=== PATIENT | female | born 1950 | race Caucasian/White ===

== ENCOUNTER 2019-04-19 13:01 | Inpatient (IN) | payer OTHER ==
[~2019-04-19] VITALS: Ht 152.4 cm; Wt 86.6 kg
--- NOTE | ~2019-04-19 | CON ---
[address] [address] CONSULTATION Name: MELVIN CAZARES Room: [address] IN [facility]#: [id number] Admission: 04/19/19 Attend Phys: Cuauhtemoc Singh MD Discharge: Date of : 54 Report #: [id number] THIS REPORT FOR: //name// CC: Cuauhtemoc Coopere Giovannashannonrocky DATE OF SERVICE: 04/20/2019 HISTORY OF PRESENT ILLNESS: This is a 68-year-old female with history of diverticulitis in the past who also sees my partner, Dr. Catalan for her diagnosis of ulcerative colitis. She reports that she takes sulfasalazine for this and has been stable. Her last colonoscopy was [address] Catalan. The patient reports that she went to bed couple of nights ago and when she woke up, she had severe abdominal pain which was radiating. She knew that this is similar to what she had experienced when she had diverticulitis before. This prompted her to come to hospital. Since hospitalization, she had imaging studies and diagnosis was confirmed. She has been on antibiotics since admission and on clear liquids. She reports that she was feeling better this morning until she drank something which made her have abdominal cramping. She denies any hematochezia or melena. PAST MEDICAL HISTORY: Significant for history of recurrent diverticulitis, ulcerative colitis, ileus, gallbladder disease, status post cholecystectomy, tonsillectomy, depression, anxiety, and diabetes. ALLERGIES: Significant for mirtazapine. MEDICATIONS: Please refer to MAR. SOCIAL HISTORY: The patient is and lives at home. Denies tobacco or alcohol use. FAMILY HISTORY: Negative for GI malignancy. PHYSICAL EXAMINATION: VITAL SIGNS: Reveals blood pressure of 122/63, respirations 15, pulse 70, temperature 98.1. LUNGS: Clear. CARDIOVASCULAR: Regular. ABDOMEN: Soft, mildly tender to palpation in the lower quadrant. Bowel sounds are positive. NEUROLOGIC: The patient is alert and oriented x 3. [place] [address] CONSULTATION Name: MELVIN CAZARES Room: [address]#: [id number] Admission: 04/19/19 Attend Phys: Cuauhtemoc Singh MD Discharge: Date of : 54 Report #: [id number] LABORATORY DATA: Reveal sodium of 140, potassium 4.2, BUN is 10, creatinine 0.9, glucose 145. Liver function tests all within normal limits. Total bilirubin is 1.1, albumin is 3.3. WBC is 10, hemoglobin 12.6 with platelets of 304. IMAGING: CT of abdomen and pelvis was obtained on admission. This was significant for circumferential wall thickening within the sigmoid colon, which has been present dating back to 2008. She also has chronic diverticulitis and scarring from the same. There is gaseous distention of the proximal area of the sigmoid colon, which may hint to colonic ileus. Finally, the patient also has evidence of fatty liver. ASSESSMENT AND PLAN: The patient with history of chronic diverticulitis and ulcerative colitis, who presents with abdominal pain. She is on antibiotic therapy and clear liquids. I will initiate Bentyl 10 mg q.8 hours for her abdominal cramping. She will need repeat of her colonoscopy in 4-6 weeks, which we will schedule accordingly. By: [id number] Alejo MD /nt
[2019-04-19 13:12] VITALS: BP 127/85
[2019-04-19] MEDS ORDERED: CLONAZEPAM 0.50.5 M1 PO (13:20)
[2019-04-19] MEDS ORDERED: AMARYL4 MG PO (13:20)
[2019-04-19] MEDS ORDERED: LEXAPRO20 MG PO (13:21)
[2019-04-19 13:25] LABS: ABSOLUTE BASOPHILS 0.1 thou/uL (0.0-0.2); ABSOLUTE EOSINOPHILS 0.1 thou/uL (0.0-0.7); ABSOLUTE LYMPHOCYTES 1.5 thou/uL (0.8-5.3); ABSOLUTE MONOCYTES 0.8 thou/uL (0.0-1.2); ABSOLUTE NEUTROPHILS 10.5 thou/uL (1.6-8.1); BASOPHILS 0.6 %; HEMATOCRIT 40.8 % (37.0-47.0); HEMOGLOBIN 13.3 gm/dL (12.0-15.0); LYMPHOCYTES 11.5 %; MCH 26.7 pg (26.0-34.0); MCHC 32.5 g/dL (28.0-37.0); MONOCYTES 5.9 %; MPV 7.5 fl. (7.2-11.1); NUCLEATED RBCS 0 /100WBC; PLATELET COUNT* 347 thou/uL (150-400); RBC 4.98 mil/uL (4.20-5.00); RDW-CV 14.6 % (10.5-14.5); WBC 12.9 thou/uL (4.0-11.0)
[2019-04-19 13:34] LABS: ANION GAP 9 mmol/L (7-16); BUN 10 mg/dL (7-18); CHLORIDE 102 mmol/L (98-107); CO2 27 mmol/L (21-32); GLUCOSE 126 mg/dL (70-99); POTASSIUM 3.8 mmol/L (3.5-5.1); SODIUM 138 mmol/L (136-145)
[2019-04-19 13:43] LABS: ALBUMIN 3.3 g/dL (3.4-5.0); ALKALINE PHOSPHATASE 98 U/L (46-116); LIPASE 56 U/L (73-393); SGOT 23 U/L (15-37); SGPT 33 U/L (30-65); TOTAL BILIRUBIN 1.1 mg/dL (<0.1-1.0); TOTAL PROTEIN 7.6 g/dL (6.4-8.2); TROPONIN-I LEVEL <0.06 ng/mL (<0.06)
[2019-04-19 15:02] LABS: URINE BILIRUBIN NEGATIVE (Negative); URINE BLOOD NEGATIVE (Negative); URINE CLARITY CLEAR; URINE COLOR YELLOW; URINE GLUCOSE-RANDOM NEGATIVE (Negative); URINE KETONES TRACE (Negative); URINE LEUKOCYTES-REFLEX NEGATIVE (Negative); URINE NITRITE-REFLEX NEGATIVE (Negative); URINE PROTEIN NEGATIVE (Negative); URINE SPECIFIC GRAVITY <= 1.005 (1.005-1.030); URINE UROBILINOGEN 0.2 E.U./dl (0.2-1.0)
[2019-04-19 15:13] VITALS: BP 132/67
[2019-04-19 15:25] VITALS: BP 135/66
[2019-04-19 17:18] VITALS: BP 128/64
[2019-04-19 20:50] VITALS: BP 137/64
[2019-04-20 05:09] LABS: ABSOLUTE EOSINOPHILS 0.1 thou/uL (0.0-0.7); ABSOLUTE LYMPHOCYTES 1.6 thou/uL (0.8-5.3); ABSOLUTE MONOCYTES 0.8 thou/uL (0.0-1.2); ABSOLUTE NEUTROPHILS 7.4 thou/uL (1.6-8.1); BASOPHILS 0.3 %; EOSINOPHILS 1.5 %; HEMATOCRIT 38.6 % (37.0-47.0); HEMOGLOBIN 12.6 gm/dL (12.0-15.0); MCH 26.9 pg (26.0-34.0); MCHC 32.6 g/dL (28.0-37.0); MCV 82.7 fL (80.0-100.0); MPV 7.3 fl. (7.2-11.1); NUCLEATED RBCS 0 /100WBC; PLATELET COUNT* 304 thou/uL (150-400); POLYS 74.2 %; RBC 4.66 mil/uL (4.20-5.00)
[2019-04-20 05:16] LABS: CALCIUM 8.4 mg/dL (8.5-10.1); CREATININE 0.9 mg/dL (0.6-1.3); POTASSIUM 4.2 mmol/L (3.5-5.1)
[2019-04-20 08:00] VITALS: BP 122/63
--- NOTE | 2019-04-20 11:59 | EKG ---
[place] [address] ELECTROCARDIOGRAM REPORT Name: MELVIN CAZARES Room: [address] IN .R.#: [id number] Admission: 04/19/19 Attend Phys: Cuauhtemoc Singh MD Discharge: Date of : 54 Report #: [id number] THIS REPORT FOR: //name// 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1950 Requested By: Israel Patel Order Number: [id number] : Dawood Stevenson Measurements Intervals [place] Rate: 85 P: 63 ME: 148 QRS: -5 QRSD: 81 T: 28 QT: 397 QTc: 472 Interpretive Statements Sinus rhythm Left ventricular hypertrophy Borderline T abnormalities, anterior leads No previous ECG available for comparison Electronically Signed On 04-20-2019 11:59:25 CDT by Dawood Stevenson [email or web address] <ELECTRONICALLY SIGNED> By: Dawood Stevenson MD, [facility] 04/20/19 1159 1319 1319 Dawood Stevenson MD, [facility] /EPI
[2019-04-20 16:00] VITALS: BP 111/41
[2019-04-20 19:30] VITALS: BP 102/51
[2019-04-21 05:16] LABS: ABSOLUTE EOSINOPHILS 0.4 thou/uL (0.0-0.7); ABSOLUTE LYMPHOCYTES 1.7 thou/uL (0.8-5.3); ABSOLUTE MONOCYTES 0.6 thou/uL (0.0-1.2); ABSOLUTE NEUTROPHILS 4.3 thou/uL (1.6-8.1); BASOPHILS 0.5 %; EOSINOPHILS 5.7 %; HEMATOCRIT 34.4 % (37.0-47.0); HEMOGLOBIN 11.3 gm/dL (12.0-15.0); LYMPHOCYTES 24.1 %; MCH 27.3 pg (26.0-34.0); MCHC 32.9 g/dL (28.0-37.0); MCV 82.8 fL (80.0-100.0); MONOCYTES 9.1 %; MPV 7.3 fl. (7.2-11.1); NUCLEATED RBCS 0 /100WBC; PLATELET COUNT* 285 thou/uL (150-400); POLYS 60.6 %; RBC 4.15 mil/uL (4.20-5.00); RDW-CV 14.7 % (10.5-14.5); WBC 7.1 thou/uL (4.0-11.0)
[2019-04-21 05:28] LABS: CALCIUM 7.9 mg/dL (8.5-10.1); CREATININE 0.9 mg/dL (0.6-1.3); POTASSIUM 3.2 mmol/L (3.5-5.1)
[2019-04-21 07:52] VITALS: BP 127/57
[2019-04-21 16:00] VITALS: BP 144/71
[2019-04-21 21:30] VITALS: BP 123/51
[2019-04-22 07:30] VITALS: BP 176/68
[2019-04-22] MEDS ORDERED: CIPRO500 MG PO (10:04)
[2019-04-22] MEDS ORDERED: FLAGYL500 M1 PO (10:04)
[2019-04-22] MEDS ORDERED: BENTYL 10 MG CA10 M1 PO (10:06)
[2019-04-22 10:10] VITALS: BP 123/51
== END 2019-04-22 11:15 | disposition home or self-care (01) | DRG 872 ==
LOC: M.ERS 13:01 → M.TBA-ER 14:29 → M.ORTHSURG 14:29
PROVIDERS: Emergency Medicine; ADMIT Internal Medicine
DX: A41.9 Sepsis, unspecified organism (principal); K57.32 Diverticulitis of large intestine without perforation or abscess without bleeding; E86.0 Dehydration; F41.9 Anxiety disorder, unspecified; F32.9 Major depressive disorder, single episode, unspecified; Z88.8 Allergy status to other drugs, medicaments and biological substances; Z90.49 Acquired absence of other specified parts of digestive tract

== ENCOUNTER 2019-12-14 05:29 | Inpatient (IN) | payer OTHER ==
[~2019-12-14] VITALS: Ht 152.4 cm; Wt 80.5 kg
--- NOTE | ~2019-12-14 | CON ---
[address] [address] CONSULTATION Name: MELVIN CAZARES Room: [address] IN [facility]#: [id number] Admission: 12/14/19 Attend Phys: Lester Esteban Discharge: Date of : 54 Report #: [id number] THIS REPORT FOR: //name// cc: Kiran Mejia Steve T. DO ~ THIS REPORT FOR: //name// CC: Kiran Johnson DATE OF SERVICE: 12/14/2019 HISTORY OF PRESENT ILLNESS: This is a 69-year-old female patient who was evaluated by me for any neurological etiology for the patient's dizziness. The patient indicated that this dizziness started about 2-3 days ago. She did not have any episode of dizziness before. She denies any history of strokes in the past. She does not know any aggravating or relieving factor for this dizziness. REVIEW OF SYSTEMS: A 14-point review of system was carried out in this patient. She denies any history of stroke. She denies any history of visual problems, chest pain or respiratory difficulty, although her CT chest has been abnormal. She does have some GI symptoms in the past and she was admitted with diverticulosis at one time. She does not have any clearcut UTI symptom. No new musculoskeletal, constitutional, dermatological, hematological, psychiatric, throat or allergic symptom associated with present symptomatology. PAST MEDICAL HISTORY: Negative for such dizziness. FAMILY HISTORY: Unremarkable. SOCIAL HISTORY: She denies the use of any alcohol. PHYSICAL EXAMINATION: Indicate this patient is alert, responsive, able to follow simple and complex command. Her speech looks intact. Cranial nerve examination 2-12 does not appear to be showing any definite abnormality. She moves all 4 extremities. She said she was wobbly yesterday, I did not make her walk. Her position sense is intact. She has no meningeal sign. I could not look at the fundus. There is no respiratory difficulty, although CT chest is somewhat abnormal. Cardiac examinations appear unremarkable. Pulses are somewhat difficult to feel in the lower extremities. Blood pressure is 146/62, respiration is 18, pulse is 84, temperature is 98.5. LABORATORY DATA: White count is 8.9. Sodium is normal. IMPRESSION: This patient complained of dizziness. She did have some ataxia. Because of that, we will exclude any possibility of any FIXED [employer]ING [employer]IEF [place] [address] CONSULTATION Name: MELVIN CAZARESETTE Room: [address]#: [id number] Admission: 12/14/19 Attend Phys: Lester Esteban Discharge: Date of : 54 Report #: [id number] MRI of the brain. More likely etiology is systemic including ENT and I will suggest continue the management. We will review the MRI when it is available and see if anything else further needs to be done neurologically. Thank you very much for this referral. By: [id number] Otoole MD /nt
[~2019-12-14 05:29] MED LIST: AMARYL4 MG PO; BENTYL 10 MG CA10 M1 PO; CIPRO500 MG PO; CLONAZEPAM 0.50.5 M1 PO; FLAGYL500 M1 PO; LEXAPRO20 MG PO
[2019-12-14 05:38] VITALS: BP 124/69
[2019-12-14] MEDS ORDERED: TRESIBA100 UNIT/1 SUBQ (05:46)
[2019-12-14 06:10] LABS: ABSOLUTE EOSINOPHILS 0.6 thou/uL (0.0-0.7); ABSOLUTE LYMPHOCYTES 1.4 thou/uL (0.8-5.3); ABSOLUTE MONOCYTES 1.4 thou/uL (0.0-1.2); ABSOLUTE NEUTROPHILS 5.4 thou/uL (1.6-8.1); BASOPHILS 0.4 %; EOSINOPHILS 6.6 %; HEMATOCRIT 34.4 % (37.0-47.0); LYMPHOCYTES 16.2 %; MCH 25.1 pg (26.0-34.0); MCV 78.6 fL (80.0-100.0); MONOCYTES 15.8 %; MPV 7.8 fl. (7.2-11.1); NUCLEATED RBCS 0 /100WBC; PLATELET COUNT* 426 thou/uL (150-400); RBC 4.38 mil/uL (4.20-5.00); RDW-CV 14.8 % (10.5-14.5); WBC 8.9 thou/uL (4.0-11.0)
[2019-12-14 06:17] LABS: CREATININE 1.3 mg/dL (0.6-1.3); POTASSIUM 3.8 mmol/L (3.5-5.1)
[2019-12-14 06:22] LABS: ALBUMIN 2.6 g/dL (3.4-5.0); TOTAL BILIRUBIN 0.3 mg/dL (<0.1-1.0); TOTAL PROTEIN 7.1 g/dL (6.4-8.2)
[2019-12-14 06:31] LABS: APTT 27.7 Seconds (25.0-31.3); PROTIME 10.6 Seconds (9.20-11.50)
[2019-12-14 07:03] LABS: URINE BILIRUBIN NEGATIVE (Negative); URINE BLOOD NEGATIVE (Negative); URINE CLARITY CLEAR; URINE COLOR YELLOW; URINE GLUCOSE-RANDOM TRACE (Negative); URINE KETONES NEGATIVE (Negative); URINE LEUKOCYTES-REFLEX 1+ (Negative); URINE NITRITE-REFLEX NEGATIVE (Negative); URINE PROTEIN NEGATIVE (Negative); URINE UROBILINOGEN 0.2 E.U./dl (0.2-1.0)
[2019-12-14 07:14] LABS: CRYSTALS None Seen /LPF (None Seen); HYALINE CASTS 0-3 Few /LPF (None Seen); MUCUS 0-3 Light strn/LPF (None Seen); SQUAMOUS 4-10 Moderate /LPF (0-3); URINE RBC 0-2 Rare /HPF (0-2); URINE WBC-REFLEX 6-15 Few /HPF (0-5)
--- NOTE | 2019-12-14 08:13 | NUR ---
LAURENT NOTIFIED UPON PT RETURN FROM CT. PT CONNECTED TO MONITOR
[2019-12-14 09:48] LABS: AMP/METHAMP Negative (Negative); BARBITURATES Negative (Negative); BENZODIAZEPINES Negative (Negative); COCAINE Negative (Negative); METHADONE Negative (Negative); OPIATES Negative (Negative); PCP Negative (Negative); THC Negative (Negative)
[2019-12-14 09:52] LABS: INFLUENZA A ANTIGEN Negative (Negative); INFLUENZA B ANTIGEN Negative (Negative)
--- NOTE | 2019-12-14 10:45 | EKG ---
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1950 Requested By: Lurdes Grimes Order Number: [id number] Alonso MD: German Treadwell Measurements Intervals [place] Rate: 104 P: 59 DC: 129 QRS: -2 QRSD: 66 T: QT: 411 QTc: 541 Interpretive Statements Sinus tachycardia Left ventricular hypertrophy Borderline T abnormalities, anterior leads Prolonged QT interval Compared to ECG 04/19/2019 13:19:15 Prolonged QT interval now present Sinus rhythm no longer present T-wave abnormality still present Electronically Signed On 12-14-2019 10:44:03 CDT by German Treadwell [email or web address] <ELECTRONICALLY SIGNED> By: German Treadwell MD, [facility] 12/14/19 1044 0549 0549 German Treadwell MD, [facility] /EPI
[2019-12-14 11:06] VITALS: BP 146/62
[2019-12-14 11:09] VITALS: BP 136/63
[2019-12-14 14:00] VITALS: BP 130/93
--- NOTE | 2019-12-14 14:22 | NUR ---
patient admitted to j&s floor at 1100 accompanied by er nurse. vss. on ra. see chart. iv fluid infusing as ordered. see emar. influenza neg. covid 19 pending. pt left for mri of head at 1425 in wheelchair. pt denies pain and diziness. instructed to call light when needed to get out of bed. will continue to monitor pt.
--- NOTE | 2019-12-14 15:52 | NUR ---
PT HAS DIARRHEA, DOCTOR WAS NOTIFIED . NEW MEDICATION ORDERED. WILL CONTINUE TO MONITOR.
[2019-12-14 20:58] VITALS: BP 126/52
[2019-12-14 23:32] VITALS: BP 96/48
[2019-12-15 02:07] LABS: GLYCOHEMOGLOBIN (HGB A1C) 8.1 % (4.8-5.6)
[2019-12-15 04:43] VITALS: BP 120/49
--- NOTE | 2019-12-15 05:14 | NUR ---
NO REPORTS OF PAIN OR NAUSEA OR SOB. A&O X4 ON ROOM AIR. COVID TEST RESULTS FROM LAB NEGATIVE. RECEIVED ALL MEDS AND FLUIDS SCHEDULED. WILL CONTINUE TO MONITOR.
[2019-12-15 07:58] VITALS: BP 112/58
[2019-12-15 12:00] VITALS: BP 128/62
--- NOTE | 2019-12-15 13:35 | NUR ---
CALLED PT.IN ROOM. SHE WAS ALERT AND ORIENTED. SHE SAID SHE WAS FEELING ALOT BETTER THAN YESTERDAY. SHE LIVES WITH HER . HAS HX OF LAP COLECTOMY 2 WEEKS AGO AT ANOTHER FACILITY. PT.IS NORMALLY INDEPENDENT. POTENTIAL DISCHARGE TOMORROW WITH HH. PT.SAID SHE WOULD BE INTERESTED DEPENDING ON COST. PT.LIVES IN [place], [place]. [facility] DOES GO TO [place] BUT DOES NOT TAKE HER INS. CONTACTED [facility]. THEY DO GO TO [place] AND TAKES PT.S INSURANCE. FAXED HER A FACE SHEET. SHE WILL RUN INSURANCE AND CHECK COPAY FOR HH AND CALL CM BACK. PT.DOES NOT USE ANY DME. RN SAID SHE IS UP AD TL IN ROOM.
[2019-12-15 14:23] LABS: HEMATOCRIT 33.3 % (37.0-47.0); HEMOGLOBIN 10.7 gm/dL (12.0-15.0); MCH 25.5 pg (26.0-34.0); MCV 79.5 fL (80.0-100.0); MPV 8.1 fl. (7.2-11.1); NUCLEATED RBCS 0 /100WBC; PLATELET COUNT* 389 thou/uL (150-400); RBC 4.19 mil/uL (4.20-5.00); RDW-CV 15.1 % (10.5-14.5); WBC 7.8 thou/uL (4.0-11.0)
[2019-12-15 14:35] LABS: CALCIUM 8.3 mg/dL (8.5-10.1); CREATININE 0.9 mg/dL (0.6-1.3)
[2019-12-15 15:08] LABS: ABSOLUTE EOSINOPHILS 0.9 thou/uL (0.0-0.7); ABSOLUTE LYMPHOCYTES 1.8 thou/uL (0.8-5.3); ABSOLUTE MONOCYTES 0.9 thou/uL (0.0-1.2); ABSOLUTE NEUTROPHILS 4.2 thou/uL (1.6-8.1); ANISOCYTOSIS 1+; HYPOCHROMASIA 2+; PLATELET ESTIMATE ADEQUATE
--- NOTE | 2019-12-15 15:11 | NUR ---
PT REMAINED ALERT AND ORIENTED. PT RESTING IN BED. REPORT GIVEN TO TELE NURSE. PT TRANSFERRED. FALL RISK PRECAUTIONS IN PLACE. HOURLY ROUNDING COMPLETED. WILL CONTINUE TO MONITOR.
[2019-12-15 16:00] VITALS: BP 129/43
--- NOTE | 2019-12-15 17:29 | NUR ---
PT REMAINED ALERT AND ORIENTED. REPORT GIVEN TO NURSE. FALL RISK PRECAUTIONS IN PLACE. HOURLY ROUNDING COMPLETED. WILL CONTINUE TO MONITOR.
[2019-12-15 20:19] VITALS: BP 127/70
[2019-12-16 00:11] VITALS: BP 139/58
[2019-12-16 04:23] VITALS: BP 148/67
--- NOTE | 2019-12-16 05:50 | NUR ---
PT IS ABLE TO COMMUNICATE HER NEEDS TO STAFF EFFECTIVELY. SHE HAS DENIED THE NEED FOR PAIN MEDICATION UP TO THIS TIME. POSSIBLE DISCHARGE LATER TODAY.
[2019-12-16 07:09] LABS: HEMATOCRIT 32.9 % (37.0-47.0); HEMOGLOBIN 10.6 gm/dL (12.0-15.0); MCH 25.3 pg (26.0-34.0); MCHC 32.1 g/dL (28.0-37.0); MCV 78.7 fL (80.0-100.0); MPV 7.8 fl. (7.2-11.1); RBC 4.18 mil/uL (4.20-5.00); RDW-CV 15.1 % (10.5-14.5); WBC 6.8 thou/uL (4.0-11.0)
[2019-12-16 07:41] LABS: ALBUMIN 2.2 g/dL (3.4-5.0); CALCIUM 7.9 mg/dL (8.5-10.1); CREATININE 0.8 mg/dL (0.6-1.3); MAGNESIUM 1.4 mg/dL (1.8-2.4); POTASSIUM 3.3 mmol/L (3.5-5.1); TOTAL BILIRUBIN 0.3 mg/dL (<0.1-1.0); TOTAL PROTEIN 6.3 g/dL (6.4-8.2)
[2019-12-16 08:00] VITALS: BP 141/69
[2019-12-16] MEDS ORDERED: MACROBID 100 M100 MG PO (11:26)
[2019-12-16 11:33] VITALS: BP 141/69
--- NOTE | 2019-12-16 12:08 | NUR ---
PT.TO DISCHARGE HOME TODAY. NO HOME HEALTH ORDERED. VERIFIED WITH TOMMY MAGANA. HE SAID PT.WAS DOING WELL AND WAS UP AD TL IN ROOM. CM SPOKE WITH PT.ON PHONE IN ROOM. SHE SAID SHE DID NOT FEEL SHE NEEDED ANY HOME HEALTH AT THIS TIME. HER WOULD BE THERE AND HER SISTERS WERE SUPPORTIVE. ALTON NOTIFIED [facility] THAT PT.WAS NOT GOING HOME WITH HH. SHE SAID SHE WOULD NOTIFY TEAM.
--- NOTE | 2019-12-16 15:01 | NUR ---
ORDER RECEIVED TO DISCHARGE PATIENT HOME TO SELF CARE. MED REC,MEDICATION EDUCATION,STROKE EDUCATION,AND NEED FOR FOLLOW UP APPOINTMENT COVEREDWITH JARROD AND STATED UNDERSTOOD BY JARROD. IV AND TELEMETRY DC'D. PATIENT'SHUSBAND ARRIVED AND PROVIDED CLOTHES AND TRANSPORTED PATIENT TO HOME. DC TIME OF 14:40.
== END 2019-12-16 15:14 | disposition home or self-care (01) | DRG 871 ==
LOC: M.ERS 05:29 → M.TBA-ER 06:57 → M.ORTHSURG 06:57 → M.2W 12-15 17:35
PROVIDERS: Personal Emergency Response Attendant; ADMIT Internal Medicine
DX: A41.89 Other specified sepsis (principal); G93.41 Metabolic encephalopathy; N39.0 Urinary tract infection, site not specified; E87.2 Acidosis; B96.89 Other specified bacterial agents as the cause of diseases classified elsewhere; Z20.828 Contact with and (suspected) exposure to other viral communicable diseases; F41.9 Anxiety disorder, unspecified; F32.9 Major depressive disorder, single episode, unspecified; Z90.49 Acquired absence of other specified parts of digestive tract; Z79.84 Long term (current) use of oral hypoglycemic drugs; Z79.4 Long term (current) use of insulin; Z79.899 Other long term (current) drug therapy; Z88.8 Allergy status to other drugs, medicaments and biological substances; Z72.89 Other problems related to lifestyle

== ENCOUNTER → 2020-09-08 | Outpatient (CLI) | payer OTHER ==
[~2020-09-08] MED LIST changes: +MACROBID 100 M100 MG PO; +TRESIBA100 UNIT/1 SUBQ
[2020-09-09 02:06] LABS: HEPATITIS B SURFACE AG Negative (Negative)
== END ==
LOC: M.LAB 11:27
PROVIDERS: ATTEND Internal Medicine Gastroenterology
DX: K51.90 Ulcerative colitis, unspecified, without complications (principal)